=== PATIENT | male | born 1940 | race Caucasian/White ===

== ENCOUNTER 2018-04-12 16:42 | Inpatient (IN) | payer MEDICARE, OTHER ==
[2018-04-12 17:53] LABS: ADD MAN DIFF? NO
[2018-04-12 17:54] LABS: WHITE BLOOD COUNT 6.7 10^3/ul (4.8-10.8)
[2018-04-12 17:54] LABS: BASOPHILS % 0.1 % (0.0-2.0); HEMATOCRIT 44.5 % (42.0-52.0); HEMOGLOBIN 14.4 g/dl (14.0-18.0); LYMPHOCYTES # 0.7 10^3/ul (0.8-2.9); LYMPHOCYTES % 11.1 % (15.0-51.0); MEAN CORPUSCULAR HEMOGLOBIN 30.8 pg (29.0-33.0); MEAN CORPUSCULAR HGB CONC 32.4 g/dl (32.0-37.0); MEAN CORPUSCULAR VOLUME 95.1 fl (82.0-101.0); MEAN PLATELET VOLUME 9.8 fl (7.4-10.4); MONOCYTE # 0.8 10^3/ul (0.3-0.9); MONOCYTES % 12.1 % (0.0-11.0); NEUTROPHILS % 75.5 % (39.0-77.0); PLATELET COUNT 321 10^3/UL (140-415); RED BLOOD COUNT 4.68 10^6/ul (4.70-6.10); RED CELL DISTRIBUTION WIDTH 15.2 % (11.5-14.5)
[2018-04-12 18:00] LABS: ALANINE AMINOTRANSFERASE 13 IU/L (13-69); ALBUMIN 3.3 g/dl (3.3-4.9); ALBUMIN/GLOBULIN RATIO 0.91; ALKALINE PHOSPHATASE 143 IU/L (42-121); ANION GAP 16 (5-13); ASPARTATE AMINO TRANSFERASE 21 IU/L (15-46); BILIRUBIN,INDIRECT 0.1 mg/dl (0-1.1); BILIRUBIN,TOTAL 0.1 mg/dl (0.2-1.3); BLOOD UREA NITROGEN 62 mg/dl (7-20); CALCIUM 8.7 mg/dl (8.4-10.2); CARBON DIOXIDE 20 mmol/L (21-31); CHLORIDE 102 mmol/L (97-110); CREATININE 1.85 mg/dl (0.61-1.24); GLUCOSE 158 mg/dl (70-220); LIPASE 80 U/L (23-300); POTASSIUM 5.3 mmol/L (3.5-5.1); SODIUM 138 mmol/L (135-144); TOTAL PROTEIN 6.9 g/dl (6.1-8.1)
[2018-04-12] MEDS: ALBUTEROL 0.5% (NEB) 2.5 MG/0.5 ML AMP INH (18:04)
[2018-04-12] MEDS: IPRATROPIUM (NEB) 0.5 MG/2.5 ML AMP INH (18:04)
[2018-04-12 18:11] LABS: TROPONIN-I 0.025 ng/ml (0.000-0.120)
[2018-04-12] MEDS ORDERED: ONDANSETRON 4 MG INJ IV (20:00)
[2018-04-12] MEDS ORDERED: NACL 0.9% 3 ML SYG IV (20:00)
[2018-04-12 20:35] LABS: B-TYPE NATRIURETIC PEPTIDE 7570 PG/ML (0-450)
[2018-04-12] MEDS ORDERED: DEXTROSE 50% 50 ML SYRINGE IV ×2 (21:00)
[2018-04-12] MEDS ORDERED: GLUCAGON 1 MG INJ IM (21:00)
[2018-04-12] MEDS ORDERED: GLUCOSE GEL 15 GRAM TUBE PO ×2 (21:00)
[2018-04-12] MEDS: ATORVASTATIN 40 MG TAB PO (21:57)
[2018-04-12] MEDS: FUROSEMIDE 40 MG INJ IV (21:57)
[2018-04-12] MEDS: HEPARIN 5,000 UNIT/1 ML VIAL SC (22:37)
[2018-04-12] MEDS: INSULIN GLARGINE [LANTus] (100 UNITS/ML) SYG SC (22:38)
[2018-04-12] MEDS: INSULIN ASPART [NOVOLOG] 3 ML PEN SC (22:38)
[2018-04-13] MEDS: DILTIAZEM 25 MG INJ IV (00:08)
[2018-04-13] MEDS ORDERED: DILTIAZEM 25 MG INJ (00:09)
[2018-04-13 01:23] LABS: ANION GAP 18 (5-13); BLOOD UREA NITROGEN 63 mg/dl (7-20); CALCIUM 8.7 mg/dl (8.4-10.2); CARBON DIOXIDE 21 mmol/L (21-31); CHLORIDE 98 mmol/L (97-110); GLUCOSE 146 mg/dl (70-220); SODIUM 137 mmol/L (135-144)
[2018-04-13 01:53] LABS: MAGNESIUM 2.4 mg/dl (1.7-2.5)
[2018-04-13] MEDS: ACCU-CHEK XX (01:54)
[2018-04-13] MEDS: MAGNESIUM SULFATE 1 GM/D5W 100 ML IVPB (01:55)
[2018-04-13] MEDS: ALBUMIN HUMAN 25% 100 ML IV ×2 (03:18→04:35)
[2018-04-13] MEDS: INSULIN ASPART [NOVOLOG] 3 ML PEN SC ×9 (03:33→20:21)
[2018-04-13] MEDS: HEPARIN 5,000 UNIT/1 ML VIAL SC ×3 (06:53→22:30)
[2018-04-13 07:05] LABS: ADD MAN DIFF? NO
[2018-04-13 07:10] LABS: WHITE BLOOD COUNT 5.5 10^3/ul (4.8-10.8)
[2018-04-13 07:10] LABS: BASOPHILS % 0.2 % (0.0-2.0); EOSINOPHILS % 0.2 % (0.0-7.0); HEMATOCRIT 34.3 % (42.0-52.0); HEMOGLOBIN 11.1 g/dl (14.0-18.0); LYMPHOCYTES # 0.9 10^3/ul (0.8-2.9); LYMPHOCYTES % 15.5 % (15.0-51.0); MEAN CORPUSCULAR HEMOGLOBIN 30.4 pg (29.0-33.0); MEAN CORPUSCULAR HGB CONC 32.4 g/dl (32.0-37.0); MEAN PLATELET VOLUME 9.4 fl (7.4-10.4); MONOCYTE # 0.6 10^3/ul (0.3-0.9); MONOCYTES % 11.6 % (0.0-11.0); NEUTROPHIL # 3.9 10^3/ul (1.6-7.5); NEUTROPHILS % 71.4 % (39.0-77.0); PLATELET COUNT 246 10^3/UL (140-415); RED BLOOD COUNT 3.65 10^6/ul (4.70-6.10); RED CELL DISTRIBUTION WIDTH 15.1 % (11.5-14.5)
[2018-04-13 07:44] LABS: ALANINE AMINOTRANSFERASE 9 IU/L (13-69); ALBUMIN 3.5 g/dl (3.3-4.9); ALBUMIN/GLOBULIN RATIO 1.34; ALKALINE PHOSPHATASE 95 IU/L (42-121); ANION GAP 18 (5-13); ASPARTATE AMINO TRANSFERASE 19 IU/L (15-46); BLOOD UREA NITROGEN 63 mg/dl (7-20); CALCIUM 8.6 mg/dl (8.4-10.2); CARBON DIOXIDE 20 mmol/L (21-31); CHLORIDE 100 mmol/L (97-110); CREATININE 1.72 mg/dl (0.61-1.24); GLUCOSE 132 mg/dl (70-220); MAGNESIUM 2.6 mg/dl (1.7-2.5); POTASSIUM 4.6 mmol/L (3.5-5.1); SODIUM 138 mmol/L (135-144); TOTAL PROTEIN 6.1 g/dl (6.1-8.1)
[2018-04-13 07:48] LABS: HEMOGLOBIN A1C 7.8 % (0-5.9)
[2018-04-13 07:57] LABS: FREE T4 (FREE THYROXINE) 1.09 ng/dl (0.78-2.44)
[2018-04-13 07:58] LABS: FREE T3 2.14 pg/ml (2.77-5.27)
[2018-04-13] MEDS: ASPIRIN 81 MG TAB PO (08:44)
[2018-04-13] MEDS ORDERED: METOPROLOL 5 MG INJ IV (09:30)
[2018-04-13] MEDS: METOPROLOL 25 MG TAB PO ×2 (10:00→20:21)
[2018-04-13 14:13] LABS: INR 1.37; PROTIME 17.1 Sec (11.9-14.9); PT RATIO 1.3
[2018-04-13] MEDS: ATORVASTATIN 40 MG TAB PO (20:20)
[2018-04-13] MEDS: INSULIN GLARGINE [LANTus] (100 UNITS/ML) SYG SC (20:46)
[2018-04-14] MEDS: INSULIN ASPART [NOVOLOG] 3 ML PEN SC ×8 (01:00→22:21)
[2018-04-14] MEDS: ACCU-CHEK XX (02:25)
[2018-04-14] MEDS: GLUCOSE GEL 15 GRAM TUBE BUCCAL (02:46)
[2018-04-14] MEDS: HEPARIN 5,000 UNIT/1 ML VIAL SC ×3 (05:55→22:20)
[2018-04-14 06:36] LABS: LACTATE DEHYDROGENASE 520 IU/L (313-618)
[2018-04-14 06:36] LABS: TOTAL PROTEIN 5.3 g/dl (6.1-8.1)
[2018-04-14] MEDS: METOPROLOL 25 MG TAB PO ×2 (08:07→22:04)
[2018-04-14] MEDS: ASPIRIN 81 MG TAB PO (08:07)
[2018-04-14] MEDS: morphine 2 MG INJ IV (12:26)
[2018-04-14 20:12] LABS: FLD MN% 93.8 %; FLD PMN% 6.2 %; FLD RBC 37000 /uL; FLD WBC 404 /cmm
[2018-04-14 20:21] LABS: FLUID LD 414 U/L; FLUID TYPE THORACENTESIS FLUID
[2018-04-14 20:22] LABS: FLUID TOTAL PROTEIN 3.7 g/dl
[2018-04-14 20:39] LABS: FLD TYPE THORACENTHESIS
[2018-04-14 20:40] LABS: FLD CLARITY SLIGHTLY CLOUDY; FLD COLOR AMBER
[2018-04-14] MEDS: ALBUTEROL/IPRATROPIUM (NEB) 3 ML AMP HHN (21:39)
[2018-04-14] MEDS: ATORVASTATIN 40 MG TAB PO (22:02)
[2018-04-14] MEDS: INSULIN GLARGINE [LANTus] (100 UNITS/ML) SYG SC (22:21)
[2018-04-15] MEDS: ACCU-CHEK XX (02:45)
[2018-04-15] MEDS: HEPARIN 5,000 UNIT/1 ML VIAL SC ×3 (05:18→22:33)
[2018-04-15 07:23] LABS: ALANINE AMINOTRANSFERASE 31 IU/L (13-69); ALBUMIN 2.8 g/dl (3.3-4.9); ALBUMIN/GLOBULIN RATIO 1.07; ALKALINE PHOSPHATASE 102 IU/L (42-121); ANION GAP 9 (5-13); ASPARTATE AMINO TRANSFERASE 29 IU/L (15-46); BILIRUBIN,INDIRECT 0.1 mg/dl (0-1.1); BILIRUBIN,TOTAL 0.1 mg/dl (0.2-1.3); BLOOD UREA NITROGEN 47 mg/dl (7-20); CALCIUM 8.3 mg/dl (8.4-10.2); CARBON DIOXIDE 30 mmol/L (21-31); CHLORIDE 100 mmol/L (97-110); CREATININE 1.29 mg/dl (0.61-1.24); GLUCOSE 88 mg/dl (70-220); LACTATE DEHYDROGENASE 462 IU/L (313-618); POTASSIUM 4.7 mmol/L (3.5-5.1); SODIUM 139 mmol/L (135-144); TOTAL PROTEIN 5.4 g/dl (6.1-8.1)
[2018-04-15] MEDS: INSULIN ASPART [NOVOLOG] 3 ML PEN SC ×5 (07:25→22:33)
[2018-04-15] MEDS: METOPROLOL 25 MG TAB PO ×2 (09:02→21:00)
[2018-04-15] MEDS: ASPIRIN 81 MG TAB PO (09:02)
[2018-04-15] MEDS ORDERED: INSULIN ASPART [NOVOLOG] 3 ML PEN SC (17:55)
[2018-04-15] MEDS: INSULIN GLARGINE [LANTus] (100 UNITS/ML) SYG SC (21:00)
[2018-04-15] MEDS: ATORVASTATIN 40 MG TAB PO (22:13)
[2018-04-16] MEDS ORDERED: PROPOFOL 100 ML (00:10)
[2018-04-16 01:14] LABS: ADD MAN DIFF? NO
[2018-04-16] MEDS: PROPOFOL 100 ML IV ×2 (01:25→15:51)
[2018-04-16 01:36] LABS: ALANINE AMINOTRANSFERASE 36 IU/L (13-69); ALBUMIN 2.8 g/dl (3.3-4.9); ALBUMIN/GLOBULIN RATIO 1.07; ALKALINE PHOSPHATASE 111 IU/L (42-121); ANION GAP 13 (5-13); ASPARTATE AMINO TRANSFERASE 58 IU/L (15-46); BLOOD UREA NITROGEN 41 mg/dl (7-20); CALCIUM 8.1 mg/dl (8.4-10.2); CARBON DIOXIDE 22 mmol/L (21-31); CHLORIDE 99 mmol/L (97-110); CREATINE KINASE 130 IU/L (23-200); CREATININE 1.37 mg/dl (0.61-1.24); GLUCOSE 228 mg/dl (70-220); POTASSIUM 4.7 mmol/L (3.5-5.1); SODIUM 134 mmol/L (135-144); TOTAL PROTEIN 5.4 g/dl (6.1-8.1)
[2018-04-16 01:39] LABS: AADO2 Arterial 291.8 mmHg (7.0-24.0); Allen Test ACCEPTAB; Arterial Base Excess -2.9 mmol/L (-3.0-3); Arterial Blood Gas Oxygen Sat 99.5 mmHG (95.0-100.0); Arterial COHb 0.3 % (0.0-3.0); Arterial Fraction of Oxyhgb 98.9 % (93.0-99.0); Arterial HCO3 23.6 mmol/L (22.0-26.0); Arterial MetHb 0.3 % (0.0-1.5); Arterial pCO2 48.2 mmhg (35-45); MODE VENT - AC; Site Right Radial
[2018-04-16 01:41] LABS: WHITE BLOOD COUNT 6.9 10^3/ul (4.8-10.8)
[2018-04-16 01:41] LABS: ABNORMAL IP MESSAGE 1; BASOPHILS % 0.1 % (0.0-2.0); EOSINOPHILS % 0.3 % (0.0-7.0); HEMATOCRIT 31.7 % (42.0-52.0); HEMOGLOBIN 11.5 g/dl (14.0-18.0); LYMPHOCYTES # 0.4 10^3/ul (0.8-2.9); LYMPHOCYTES % 6.2 % (15.0-51.0); MEAN CORPUSCULAR HEMOGLOBIN 36.1 pg (29.0-33.0); MEAN CORPUSCULAR HGB CONC 36.3 g/dl (32.0-37.0); MEAN CORPUSCULAR VOLUME 99.4 fl (82.0-101.0); MONOCYTE # 0.6 10^3/ul (0.3-0.9); MONOCYTES % 8.6 % (0.0-11.0); NEUTROPHIL # 5.7 10^3/ul (1.6-7.5); NEUTROPHILS % 82.6 % (39.0-77.0); PLATELET COUNT 141 10^3/UL (140-415); POSITIVE DIFF @See below; RED BLOOD COUNT 3.19 10^6/ul (4.70-6.10); RED CELL DISTRIBUTION WIDTH 14.6 % (11.5-14.5)
[2018-04-16 01:47] LABS: CK INDEX 4.3; TROPONIN-I 0.054 ng/ml (0.000-0.120)
[2018-04-16] MEDS: ACCU-CHEK XX (02:00)
[2018-04-16] MEDS: SOD CHLORIDE 0.9% 500 ML IV (02:59)
[2018-04-16] MEDS: MIDAZOLAM (DRIP) 50 mg/50 mL 50 ML IV (04:09)
[2018-04-16 05:51] LABS: CREATINE KINASE 105 IU/L (23-200)
[2018-04-16 05:58] LABS: LACTIC ACID 3.7 mmol/L (0.5-2.0)
[2018-04-16] MEDS ORDERED: LIDOCAINE 1% (MPF) 5 ML VIAL SC (06:00)
[2018-04-16 06:03] LABS: CK INDEX 5.5
[2018-04-16 06:05] LABS: CK-MB 5.76 ng/ml (0.0-2.4)
[2018-04-16 06:08] LABS: TROPONIN-I 0.187 ng/ml (0.000-0.120)
[2018-04-16] MEDS: SOD CHLORIDE 0.9% 1,000 ML IV (06:50)
[2018-04-16] MEDS: HEPARIN 5,000 UNIT/1 ML VIAL SC ×2 (06:55→13:35)
[2018-04-16] MEDS: INSULIN ASPART [NOVOLOG] 3 ML PEN SC ×4 (06:55→21:03)
[2018-04-16] MEDS ORDERED: EPINEPHrine 0.1 MG/ML SYG (07:00)
[2018-04-16] MEDS: ASPIRIN 81 MG TAB PO (08:26)
[2018-04-16] MEDS: METOPROLOL 25 MG TAB PO ×2 (08:28→21:49)
[2018-04-16] MEDS: LIDOCAINE 1% (MPF) 5 ML VIAL SC (11:30)
[2018-04-16 12:41] LABS: CREATINE KINASE 137 IU/L (23-200)
[2018-04-16 12:42] LABS: LACTIC ACID 2.6 mmol/L (0.5-2.0)
[2018-04-16 12:59] LABS: CK INDEX 4.9
[2018-04-16 13:04] LABS: CK-MB 6.76 ng/ml (0.0-2.4)
[2018-04-16 13:15] LABS: AADO2 Arterial 118.1 mmHg (7.0-24.0); Allen Test ACCEPTAB; Arterial Base Excess -1.6 mmol/L (-3.0-3); Arterial Blood Gas Oxygen Sat 95.7 mmHG (95.0-100.0); Arterial COHb 0.1 % (0.0-3.0); Arterial Fraction of Oxyhgb 95.3 % (93.0-99.0); Arterial HCO3 23.7 mmol/L (22.0-26.0); Arterial MetHb 0.3 % (0.0-1.5); Arterial pCO2 42.4 mmhg (35-45); Blood Gas PS 10; MODE VENT - CPAP; Site Right Radial
[2018-04-16] MEDS: DEXTROSE 5%-0.45% NACL 1,000 ML IV (14:47)
[2018-04-16] MEDS: hydrALAzine 20 MG INJ IV (14:53)
[2018-04-16] MEDS ORDERED: morphine 2 MG INJ IV (19:00)
[2018-04-16] MEDS: INSULIN GLARGINE [LANTus] (100 UNITS/ML) SYG SC (21:02)
[2018-04-16] MEDS: ATORVASTATIN 40 MG TAB PO (21:49)
[2018-04-17] MEDS: PROPOFOL 100 ML IV ×2 (00:50→08:18)
[2018-04-17] MEDS: HEPARIN 5,000 UNIT/1 ML VIAL SC ×4 (01:21→21:13)
[2018-04-17] MEDS: ACCU-CHEK XX (02:00)
[2018-04-17] MEDS: DEXTROSE 5%-0.45% NACL 1,000 ML IV ×2 (05:03→17:02)
[2018-04-17 05:10] LABS: ADD MAN DIFF? NO
[2018-04-17 05:18] LABS: BASOPHILS % 0.1 % (0.0-2.0); EOSINOPHILS % 0.1 % (0.0-7.0); HEMOGLOBIN 10.6 g/dl (14.0-18.0); LYMPHOCYTES # 0.7 10^3/ul (0.8-2.9); LYMPHOCYTES % 9.2 % (15.0-51.0); MEAN CORPUSCULAR HEMOGLOBIN 30.9 pg (29.0-33.0); MEAN CORPUSCULAR HGB CONC 33.1 g/dl (32.0-37.0); MEAN CORPUSCULAR VOLUME 93.3 fl (82.0-101.0); MEAN PLATELET VOLUME 9.5 fl (7.4-10.4); MONOCYTE # 0.9 10^3/ul (0.3-0.9); NEUTROPHIL # 5.5 10^3/ul (1.6-7.5); NEUTROPHILS % 76.9 % (39.0-77.0); PLATELET COUNT 145 10^3/UL (140-415); RED BLOOD COUNT 3.43 10^6/ul (4.70-6.10); RED CELL DISTRIBUTION WIDTH 15.3 % (11.5-14.5)
[2018-04-17 05:18] LABS: WHITE BLOOD COUNT 7.2 10^3/ul (4.8-10.8)
[2018-04-17 05:42] LABS: ANION GAP 3 (5-13); BLOOD UREA NITROGEN 35 mg/dl (7-20); CALCIUM 7.8 mg/dl (8.4-10.2); CARBON DIOXIDE 26 mmol/L (21-31); CHLORIDE 104 mmol/L (97-110); CREATININE 1.23 mg/dl (0.61-1.24); GLUCOSE 132 mg/dl (70-220); MAGNESIUM 2.1 mg/dl (1.7-2.5); PHOSPHORUS 2.7 mg/dl (2.5-4.9); POTASSIUM 4.3 mmol/L (3.5-5.1); SODIUM 133 mmol/L (135-144)
[2018-04-17] MEDS: INSULIN ASPART [NOVOLOG] 3 ML PEN SC ×5 (07:00→20:36)
[2018-04-17] MEDS: ASPIRIN 81 MG TAB PO (09:03)
[2018-04-17] MEDS: METOPROLOL 25 MG TAB PO ×2 (09:40→20:03)
[2018-04-17 12:17] LABS: AADO2 Arterial 73.6 mmHg (7.0-24.0); Allen Test ACCEPTAB; Arterial Base Excess -0.3 mmol/L (-3.0-3); Arterial Blood Gas Oxygen Sat 97.6 mmHG (95.0-100.0); Arterial COHb 0.1 % (0.0-3.0); Arterial Fraction of Oxyhgb 97.2 % (93.0-99.0); Arterial MetHb 0.3 % (0.0-1.5); Arterial pCO2 33.8 mmhg (35-45); Blood Gas PS 10; MODE VENT - CPAP; Site Right Radial
[2018-04-17] MEDS: LACTATED RINGER'S 500 ML IV (12:38)
[2018-04-17] MEDS: IODIXANOL LOCM 100 ML BTL (16:01)
[2018-04-17] MEDS: SOD CHLORIDE 0.9% 100 ML (16:01)
[2018-04-17] MEDS: HEPARIN (10 UNITS/ML) 5ML SYG IV (17:03)
[2018-04-17] MEDS: ATORVASTATIN 40 MG TAB PO (20:03)
[2018-04-17] MEDS: INSULIN GLARGINE [LANTus] (100 UNITS/ML) SYG SC (21:14)
[2018-04-18] MEDS: PROPOFOL 100 ML IV (00:30)
[2018-04-18] MEDS: INSULIN ASPART [NOVOLOG] 3 ML PEN SC ×6 (00:39→21:25)
[2018-04-18] MEDS: ACCU-CHEK XX (01:58)
[2018-04-18 04:57] LABS: ADD MAN DIFF? NO
[2018-04-18 05:01] LABS: WHITE BLOOD COUNT 8.3 10^3/ul (4.8-10.8)
[2018-04-18 05:01] LABS: BASOPHILS % 0.1 % (0.0-2.0); EOSINOPHILS % 0.2 % (0.0-7.0); HEMATOCRIT 33.1 % (42.0-52.0); HEMOGLOBIN 10.8 g/dl (14.0-18.0); LYMPHOCYTES # 0.6 10^3/ul (0.8-2.9); LYMPHOCYTES % 7.2 % (15.0-51.0); MEAN CORPUSCULAR HEMOGLOBIN 30.6 pg (29.0-33.0); MEAN CORPUSCULAR HGB CONC 32.6 g/dl (32.0-37.0); MEAN CORPUSCULAR VOLUME 93.8 fl (82.0-101.0); MEAN PLATELET VOLUME 9.6 fl (7.4-10.4); MONOCYTE # 1.1 10^3/ul (0.3-0.9); MONOCYTES % 13.6 % (0.0-11.0); NEUTROPHIL # 6.4 10^3/ul (1.6-7.5); NEUTROPHILS % 77.9 % (39.0-77.0); PLATELET COUNT 148 10^3/UL (140-415); RED BLOOD COUNT 3.53 10^6/ul (4.70-6.10); RED CELL DISTRIBUTION WIDTH 15.1 % (11.5-14.5)
[2018-04-18 05:28] LABS: ANION GAP 4 (5-13); BLOOD UREA NITROGEN 23 mg/dl (7-20); CALCIUM 7.7 mg/dl (8.4-10.2); CARBON DIOXIDE 26 mmol/L (21-31); CHLORIDE 105 mmol/L (97-110); CREATININE 0.96 mg/dl (0.61-1.24); GLUCOSE 117 mg/dl (70-220); POTASSIUM 4.5 mmol/L (3.5-5.1); SODIUM 135 mmol/L (135-144)
[2018-04-18 05:37] LABS: LACTIC ACID 2.1 mmol/L (0.5-2.0)
[2018-04-18 05:58] LABS: AADO2 Arterial 38.9 mmHg (7.0-24.0); Arterial Base Excess 0.5 mmol/L (-3.0-3); Arterial Blood Gas Oxygen Sat 94.3 mmHG (95.0-100.0); Arterial COHb 0.6 % (0.0-3.0); Arterial Fraction of Oxyhgb 93.4 % (93.0-99.0); Arterial HCO3 23.6 mmol/L (22.0-26.0); Arterial MetHb 0.4 % (0.0-1.5); MODE ROOM AIR; Site Right Brachial
[2018-04-18] MEDS: DEXTROSE 5%-0.45% NACL 1,000 ML IV ×2 (06:03→20:13)
[2018-04-18] MEDS: HEPARIN 5,000 UNIT/1 ML VIAL SC ×3 (06:07→21:24)
[2018-04-18] MEDS: METOPROLOL 25 MG TAB PO ×2 (09:00→21:28)
[2018-04-18] MEDS: ASPIRIN 81 MG TAB PO (09:00)
[2018-04-18] MEDS: INSULIN GLARGINE [LANTus] (100 UNITS/ML) SYG SC (21:26)
[2018-04-18] MEDS: ATORVASTATIN 40 MG TAB PO (21:28)
[2018-04-19] MEDS: INSULIN ASPART [NOVOLOG] 3 ML PEN SC ×6 (01:00→21:07)
[2018-04-19] MEDS: ACCU-CHEK XX (02:00)
[2018-04-19] MEDS: HEPARIN 5,000 UNIT/1 ML VIAL SC ×3 (05:38→21:08)
[2018-04-19 06:38] LABS: ADD MAN DIFF? NO
[2018-04-19 06:41] LABS: BASOPHILS % 0.1 % (0.0-2.0); EOSINOPHILS % 0.4 % (0.0-7.0); HEMOGLOBIN 10.1 g/dl (14.0-18.0); LYMPHOCYTES # 0.7 10^3/ul (0.8-2.9); LYMPHOCYTES % 9.9 % (15.0-51.0); MEAN CORPUSCULAR HEMOGLOBIN 30.9 pg (29.0-33.0); MEAN CORPUSCULAR HGB CONC 33.7 g/dl (32.0-37.0); MEAN CORPUSCULAR VOLUME 91.7 fl (82.0-101.0); MEAN PLATELET VOLUME 9.9 fl (7.4-10.4); MONOCYTE # 1.1 10^3/ul (0.3-0.9); MONOCYTES % 15.7 % (0.0-11.0); NEUTROPHIL # 5.3 10^3/ul (1.6-7.5); NEUTROPHILS % 72.9 % (39.0-77.0); PLATELET COUNT 142 10^3/UL (140-415); RED BLOOD COUNT 3.27 10^6/ul (4.70-6.10); RED CELL DISTRIBUTION WIDTH 15.3 % (11.5-14.5)
[2018-04-19 06:41] LABS: WHITE BLOOD COUNT 7.2 10^3/ul (4.8-10.8)
[2018-04-19 07:11] LABS: ANION GAP 7 (5-13); BLOOD UREA NITROGEN 18 mg/dl (7-20); CALCIUM 7.6 mg/dl (8.4-10.2); CARBON DIOXIDE 25 mmol/L (21-31); CHLORIDE 103 mmol/L (97-110); CREATININE 0.91 mg/dl (0.61-1.24); GLUCOSE 109 mg/dl (70-220); POTASSIUM 4.1 mmol/L (3.5-5.1); SODIUM 135 mmol/L (135-144)
[2018-04-19] MEDS: DEXTROSE 5%-0.45% NACL 1,000 ML IV ×2 (08:33→17:34)
[2018-04-19] MEDS: METOPROLOL 25 MG TAB PO ×2 (08:33→20:42)
[2018-04-19] MEDS: ASPIRIN 81 MG TAB PO (08:33)
[2018-04-19] MEDS: BISACODYL (EC) 5 MG TAB PO (17:32)
[2018-04-19] MEDS: DOCUSATE SODIUM 100 MG CAP PO (17:32)
[2018-04-19] MEDS: ATORVASTATIN 40 MG TAB PO (20:42)
[2018-04-19] MEDS: INSULIN GLARGINE [LANTus] (100 UNITS/ML) SYG SC (21:07)
[2018-04-20] MEDS: INSULIN ASPART [NOVOLOG] 3 ML PEN SC ×6 (01:00→21:00)
[2018-04-20] MEDS: ACCU-CHEK XX (02:00)
[2018-04-20] MEDS: HEPARIN 5,000 UNIT/1 ML VIAL SC ×3 (06:18→21:03)
[2018-04-20] MEDS: DOCUSATE SODIUM 100 MG CAP PO (08:44)
[2018-04-20] MEDS: ASPIRIN 81 MG TAB PO (08:44)
[2018-04-20] MEDS: DEXTROSE 5%-0.45% NACL 1,000 ML IV (08:44)
[2018-04-20] MEDS: METOPROLOL 25 MG TAB PO ×2 (08:45→21:00)
[2018-04-20] MEDS: ATORVASTATIN 40 MG TAB PO (21:00)
[2018-04-20] MEDS: INSULIN GLARGINE [LANTus] (100 UNITS/ML) SYG SC (21:03)
[2018-04-21] MEDS: INSULIN ASPART [NOVOLOG] 3 ML PEN SC ×3 (01:00→08:13)
[2018-04-21] MEDS: ACCU-CHEK XX (02:00)
[2018-04-21 05:06] LABS: ADD MAN DIFF? NO
[2018-04-21 05:08] LABS: ABNORMAL IP MESSAGE 1; BASOPHILS % 0.1 % (0.0-2.0); EOSINOPHILS % 0.2 % (0.0-7.0); HEMATOCRIT 31.7 % (42.0-52.0); HEMOGLOBIN 10.7 g/dl (14.0-18.0); LYMPHOCYTES # 0.7 10^3/ul (0.8-2.9); LYMPHOCYTES % 8.6 % (15.0-51.0); MEAN CORPUSCULAR HEMOGLOBIN 30.8 pg (29.0-33.0); MEAN CORPUSCULAR HGB CONC 33.8 g/dl (32.0-37.0); MEAN CORPUSCULAR VOLUME 91.4 fl (82.0-101.0); MEAN PLATELET VOLUME 9.2 fl (7.4-10.4); MONOCYTE # 1.5 10^3/ul (0.3-0.9); MONOCYTES % 18.4 % (0.0-11.0); NEUTROPHIL # 5.9 10^3/ul (1.6-7.5); NEUTROPHILS % 71.4 % (39.0-77.0); PLATELET COUNT 144 10^3/UL (140-415); POSITIVE DIFF @See below; RED BLOOD COUNT 3.47 10^6/ul (4.70-6.10); RED CELL DISTRIBUTION WIDTH 14.6 % (11.5-14.5)
[2018-04-21 05:08] LABS: WHITE BLOOD COUNT 8.3 10^3/ul (4.8-10.8)
[2018-04-21] MEDS: HEPARIN 5,000 UNIT/1 ML VIAL SC ×3 (05:45→22:28)
[2018-04-21 05:51] LABS: ANION GAP 9 (5-13); BLOOD UREA NITROGEN 14 mg/dl (7-20); CALCIUM 7.5 mg/dl (8.4-10.2); CARBON DIOXIDE 24 mmol/L (21-31); CHLORIDE 98 mmol/L (97-110); CREATININE 0.89 mg/dl (0.61-1.24); GLUCOSE 121 mg/dl (70-220); MAGNESIUM 1.5 mg/dl (1.7-2.5); PHOSPHORUS 3.2 mg/dl (2.5-4.9); POTASSIUM 3.9 mmol/L (3.5-5.1); SODIUM 131 mmol/L (135-144)
[2018-04-21] MEDS: DEXTROSE 5%-0.45% NACL 1,000 ML IV (08:00)
[2018-04-21] MEDS: ASPIRIN 81 MG TAB PO (08:13)
[2018-04-21] MEDS: METOPROLOL 25 MG TAB PO ×2 (08:13→20:32)
[2018-04-21] MEDS ORDERED: INSULIN ASPART [NOVOLOG] 3 ML PEN SC (11:10)
[2018-04-21] MEDS: Insulin NOVOLOG SS MILD Algorithm (SS with meals and bedtime) SC ×3 (12:52→20:33)
[2018-04-21] MEDS: NICOTINE (21 MG/24 HR) PATCH TRANSDERM (13:26)
[2018-04-21] MEDS ORDERED: morphine LIQ (10 MG/5 ML) CUP PO (15:00)
[2018-04-21] MEDS: ATORVASTATIN 40 MG TAB PO (20:31)
[2018-04-21] MEDS: INSULIN GLARGINE [LANTus] (100 UNITS/ML) SYG SC (20:33)
[2018-04-22] MEDS: ACCU-CHEK XX (02:00)
[2018-04-22] MEDS: ACETAMINOPHEN 325 MG TAB PO (02:30)
[2018-04-22] MEDS: HEPARIN 5,000 UNIT/1 ML VIAL SC ×3 (06:37→20:59)
[2018-04-22] MEDS: METOPROLOL 25 MG TAB PO ×2 (08:21→21:00)
[2018-04-22] MEDS: ASPIRIN 81 MG TAB PO (08:21)
[2018-04-22] MEDS: NICOTINE (21 MG/24 HR) PATCH TRANSDERM (08:29)
[2018-04-22] MEDS: HYDROCODONE/APAP (5/325) TAB PO (08:33)
[2018-04-22] MEDS: Insulin NOVOLOG SS MILD Algorithm (SS with meals and bedtime) SC ×4 (08:37→21:00)
[2018-04-22] MEDS: ATORVASTATIN 40 MG TAB PO (20:59)
[2018-04-22] MEDS: INSULIN GLARGINE [LANTus] (100 UNITS/ML) SYG SC (20:59)
[2018-04-23] MEDS: ACCU-CHEK XX (01:48)
[2018-04-23] MEDS: HEPARIN 5,000 UNIT/1 ML VIAL SC ×2 (05:14→13:52)
[2018-04-23] MEDS: Insulin NOVOLOG SS MILD Algorithm (SS with meals and bedtime) SC ×2 (07:20→11:10)
[2018-04-23] MEDS: ASPIRIN 81 MG TAB PO (08:25)
[2018-04-23] MEDS: METOPROLOL 25 MG TAB PO (08:32)
[2018-04-23] MEDS: NICOTINE (21 MG/24 HR) PATCH TRANSDERM (08:43)
== END 2018-04-23 15:15 | DRG 208 ==
LOC: ICU 04-16 00:03 → MS1 04-20 11:53 → E/R 16:42 → TEL 04-18 23:33
PROC: 0W9930Z Drainage of Right Pleural Cavity with Drainage Device, Percutaneous Approach (ICD-10-PCS; 2018-04-14)
PROC: 5A1945Z Respiratory Ventilation, 24-96 Consecutive Hours (ICD-10-PCS; principal; 2018-04-16)
PROC: 0BH17EZ Insertion of Endotracheal Airway into Trachea, Via Natural or Artificial Opening (ICD-10-PCS; 2018-04-16)
PROC: 0W9900Z Drainage of Right Pleural Cavity with Drainage Device, Open Approach (ICD-10-PCS; 2018-04-16)
PROC: 02HV33Z Insertion of Infusion Device into Superior Vena Cava, Percutaneous Approach (ICD-10-PCS; 2018-04-17)
DX: C34.01 Malignant neoplasm of right main bronchus (principal); I46.9 Cardiac arrest, cause unspecified; J96.01 Acute respiratory failure with hypoxia; N17.9 Acute kidney failure, unspecified; J91.0 Malignant pleural effusion; E46 Unspecified protein-calorie malnutrition; J44.1 Chronic obstructive pulmonary disease with (acute) exacerbation; I48.92 Unspecified atrial flutter; J98.11 Atelectasis; I48.91 Unspecified atrial fibrillation; Z68.26 Body mass index [BMI] 26.0-26.9, adult; Z72.0 Tobacco use; E11.9 Type 2 diabetes mellitus without complications; Z86.73 Personal history of transient ischemic attack (TIA), and cerebral infarction without residual deficits; E78.5 Hyperlipidemia, unspecified; I12.9 Hypertensive chronic kidney disease with stage 1 through stage 4 chronic kidney disease, or unspecified chronic kidney disease; N18.9 Chronic kidney disease, unspecified; I27.20 Pulmonary hypertension, unspecified; F03.90 Unspecified dementia, unspecified severity, without behavioral disturbance, psychotic disturbance, mood disturbance, and anxiety; R59.1 Generalized enlarged lymph nodes; Z66 Do not resuscitate
CPT/HCPCS: 31500; 36569; 36600; 70552; 71045; 71250; 71260; 74177; 76937; 76942; 80048; 80053; 82550; 82553; 82803; 82962; 83036; 83605; 83615; 83690; 83735; 83880; 84100; 84155; 84157; 84439; 84443; 84481; 84484; 85025; 85610; 87070; 87081; 87102; 87116; 88104; 88305; 89051; 90686; 92526; 92610; 92950; 93005; 93306; 94002; 94003; 94644; 94664; 94770; 97110; 97161; 97164; 97530; 99285-25

== ENCOUNTER 2018-06-05 18:28 | Inpatient (IN) | payer MEDICARE, OTHER ==
[2018-06-05 18:47] LABS: ABNORMAL IP MESSAGE 1; HEMATOCRIT 22.1 % (42.0-52.0); MEAN CORPUSCULAR HGB CONC 29.9 g/dl (32.0-37.0); MEAN CORPUSCULAR VOLUME 93.6 fl (82.0-101.0); MEAN PLATELET VOLUME 8.9 fl (7.4-10.4); NUCLEATED RED BLOOD CELLS% 1.1 /100WBC (0.0-0.0); PLATELET COUNT 133 10^3/UL (140-415); POSITIVE DIFF @See below; RED BLOOD COUNT 2.36 10^6/ul (4.70-6.10); RED CELL DISTRIBUTION WIDTH 17.3 % (11.5-14.5)
[2018-06-05 18:47] LABS: WHITE BLOOD COUNT 8.4 10^3/ul (4.8-10.8)
[2018-06-05] MEDS: PANTOPRAZOLE 40 MG INJ IV (18:49)
[2018-06-05 18:53] LABS: ADD MAN DIFF? YES; HEMOGLOBIN 6.6 g/dl (14.0-18.0)
[2018-06-05] MEDS: SOD CHLORIDE 0.9% 0 ML IV (18:53)
[2018-06-05 19:06] LABS: ALANINE AMINOTRANSFERASE 24 IU/L (13-69); ALBUMIN 2.4 g/dl (3.3-4.9); ALKALINE PHOSPHATASE 465 IU/L (42-121); ANION GAP 8 (5-13); ASPARTATE AMINO TRANSFERASE 65 IU/L (15-46); BLOOD UREA NITROGEN 47 mg/dl (7-20); CALCIUM 8.1 mg/dl (8.4-10.2); CARBON DIOXIDE 24 mmol/L (21-31); CHLORIDE 101 mmol/L (97-110); CREATININE 0.86 mg/dl (0.61-1.24); GLUCOSE 251 mg/dl (70-220); POTASSIUM 5.2 mmol/L (3.5-5.1); SODIUM 133 mmol/L (135-144); TOTAL PROTEIN 5.4 g/dl (6.1-8.1)
[2018-06-05 19:10] LABS: INR 1.18; PARTIAL THROMBOPLASTIN TIME 33.4 Sec (23.0-35.0); PROTIME 15.1 Sec (11.9-14.9); PT RATIO 1.2
[2018-06-05 19:17] LABS: TROPONIN-I < 0.012 ng/ml (0.000-0.120)
[2018-06-05] MEDS ORDERED: ONDANSETRON 4 MG INJ IV ×2 (19:30)
[2018-06-05] MEDS ORDERED: ACETAMINOPHEN 325 MG TAB PO ×2 (19:30)
[2018-06-05] MEDS ORDERED: LORAZEPAM 2 MG INJ IV (19:30)
[2018-06-05] MEDS ORDERED: MAGNESIUM HYDROXIDE 30ML CUP PO (19:30)
[2018-06-05] MEDS ORDERED: NITROGLYCERIN (SL) 0.4 MG TAB SL (19:30)
[2018-06-05] MEDS ORDERED: DOCUSATE SODIUM 100 MG CAP PO (19:30)
[2018-06-05] MEDS ORDERED: NACL 0.9% 3 ML SYG IV (19:30)
[2018-06-05] MEDS ORDERED: HYDROCODONE/APAP (5/325) TAB PO (19:30)
[2018-06-05] MEDS ORDERED: ALBUTEROL/IPRATROPIUM (NEB) 3 ML AMP HHN (19:30)
[2018-06-05] MEDS ORDERED: hydrALAzine 20 MG INJ IV (19:30)
[2018-06-05] MEDS ORDERED: morphine 2 MG INJ IV (19:30)
[2018-06-05 19:55] LABS: ANISOCYTOSIS 1+ (0-0); BAND NEUTROPHILS #M 1.6 10^3/ul (0.0-0.6); BAND NEUTROPHILS % (M) 20 % (0-4); BURR CELLS 1+ (0-0); EOSINOPHILS % (M) 2 % (0-7); ERYTHROBLAST% (NRBC) (M) 1 % (0-0); HYPOCHROMASIA 2+ (0-0); LYMPHOCYTES #M 0.5 10^3/ul (0.8-2.9); LYMPHOCYTES % (M) 7 % (15-51); METAMYELOCYTES #M 0.2 10^3/ul (0.0-0.0); METAMYELOCYTES %M 3 % (0-0); MICROCYTOSIS 1+ (0-0); MONOCYTE #M 0.6 10^3/ul (0.3-0.9); MONOCYTES % (M) 8 % (0-11); MYELOCYTES #M 0.3 10^3/ul (0.0-0.0); MYELOCYTES % (M) 4 % (0-0); OVALOCYTES 1+ (0-0); POIKILOCYTOSIS 1+ (0-0); POLYCHROMASIA 1+ (0-0); PROMYELOCYTES % (M) 1 % (0-0); SCHISTOCYTES 1+ (0-0); SEG NEUT #M 4.8 10^3/ul (1.6-7.5); SEGMENTED NEUTROPHILS (M) % 55 % (39-77); SMUDGE%M 6 % (0-0); SPHEROCYTES 1+ (0-0); STOMATOCYTES 1+ (0-0)
[2018-06-05 20:08] LABS: FREE T4 (FREE THYROXINE) 1.01 ng/dl (0.78-2.44)
[2018-06-05 20:20] LABS: IMMEDIATE SPIN CROSSMATCH 1 2
[2018-06-05] MEDS: ATORVASTATIN 40 MG TAB PO (22:23)
[2018-06-05] MEDS ORDERED: GLUCOSE GEL 15 GRAM TUBE PO ×2 (22:30)
[2018-06-05] MEDS ORDERED: DEXTROSE 50% 50 ML SYRINGE IV ×2 (22:30)
[2018-06-05] MEDS ORDERED: GLUCAGON 1 MG INJ IM (22:30)
[2018-06-05] MEDS ORDERED: GLUCOSE GEL 15 GRAM TUBE BUCCAL (22:30)
[2018-06-05] MEDS: INSULIN GLARGINE [LANTus] (100 UNITS/ML) SYG SC (22:35)
[2018-06-06] MEDS: SODIUM POLYSTYRENE 15 GM KIT (POWDER + SORBITOL) PO (00:32)
[2018-06-06] MEDS: SOD CHLORIDE 0.45% 1,000 ML IV ×2 (00:33→08:45)
[2018-06-06] MEDS ORDERED: ACCU-CHEK XX (02:00)
[2018-06-06] MEDS ORDERED: PENDING SANTYL ORDER FOR WOUND CARE XX (04:30)
[2018-06-06 09:16] LABS: WHITE BLOOD COUNT 9.5 10^3/ul (4.8-10.8)
[2018-06-06 09:16] LABS: ABNORMAL IP MESSAGE 1; HEMATOCRIT 27.2 % (42.0-52.0); HEMOGLOBIN 8.6 g/dl (14.0-18.0); MEAN CORPUSCULAR HEMOGLOBIN 29.5 pg (29.0-33.0); MEAN CORPUSCULAR HGB CONC 31.6 g/dl (32.0-37.0); MEAN CORPUSCULAR VOLUME 93.2 fl (82.0-101.0); MEAN PLATELET VOLUME 9.5 fl (7.4-10.4); NUCLEATED RED BLOOD CELLS% 0.8 /100WBC (0.0-0.0); PLATELET COUNT 131 10^3/UL (140-415); POSITIVE DIFF @See below; RED BLOOD COUNT 2.92 10^6/ul (4.70-6.10); RED CELL DISTRIBUTION WIDTH 16.5 % (11.5-14.5)
[2018-06-06 09:17] LABS: ADD MAN DIFF? YES
[2018-06-06] MEDS: LISINOPRIL 10 MG TAB PO (09:26)
[2018-06-06 09:28] LABS: ANION GAP 10 (5-13); BLOOD UREA NITROGEN 38 mg/dl (7-20); CALCIUM 7.9 mg/dl (8.4-10.2); CARBON DIOXIDE 24 mmol/L (21-31); CHLORIDE 102 mmol/L (97-110); CHOL/HDL RATIO 3.5 RATIO; CREATININE 0.69 mg/dl (0.61-1.24); GLUCOSE 215 mg/dl (70-220); HDL CHOLESTEROL 22 mg/dl (31-75); LDL CHOLESTEROL,CALCULATED 32 mg/dl; MAGNESIUM 2.3 mg/dl (1.7-2.5); PHOSPHORUS 3.7 mg/dl (2.5-4.9); POTASSIUM 4.6 mmol/L (3.5-5.1); SODIUM 136 mmol/L (135-144); TRIGLYCERIDES 125 mg/dl (0-149)
[2018-06-06 09:28] LABS: CHOLESTEROL 79 mg/dl (100-200)
[2018-06-06] MEDS: INSULIN ASPART [NOVOLOG] 3 ML PEN SC ×3 (09:28→17:37)
[2018-06-06 09:32] LABS: HEMOGLOBIN A1C 7.1 % (0-5.9)
[2018-06-06 10:12] LABS: ANISOCYTOSIS 1+ (0-0); BAND NEUTROPHILS #M 1.4 10^3/ul (0.0-0.6); BAND NEUTROPHILS % (M) 15 % (0-4); LYMPHOCYTES #M 0.6 10^3/ul (0.8-2.9); LYMPHOCYTES % (M) 7 % (15-51); METAMYELOCYTES #M 0.3 10^3/ul (0.0-0.0); METAMYELOCYTES %M 4 % (0-0); MICROCYTOSIS 1+ (0-0); MONOCYTE #M 0.8 10^3/ul (0.3-0.9); MONOCYTES % (M) 9 % (0-11); MYELOCYTES #M 0.6 10^3/ul (0.0-0.0); MYELOCYTES % (M) 7 % (0-0); PLATELET ESTIMATE DECREASED; POIKILOCYTOSIS 1+ (0-0); POLYCHROMASIA 3+ (0-0); REACTIVE LYMPHOCYTES% (M) 1 % (0-0); SEG NEUT #M 5.5 10^3/ul (1.6-7.5); SEGMENTED NEUTROPHILS (M) % 57 % (39-77); SMUDGE%M 2 % (0-0)
== END 2018-06-06 19:45 | DRG 55 ==
LOC: E/R 18:28 → PP2 19:29
PROVIDERS: Internal Medicine; Pediatrics Neonatal-Perinatal Medicine
PROC: 30233N1 Transfusion of Nonautologous Red Blood Cells into Peripheral Vein, Percutaneous Approach (ICD-10-PCS; principal; 2018-06-05)
DX: C71.9 Malignant neoplasm of brain, unspecified (principal); D63.0 Anemia in neoplastic disease; F03.90 Unspecified dementia, unspecified severity, without behavioral disturbance, psychotic disturbance, mood disturbance, and anxiety; I48.91 Unspecified atrial fibrillation; I25.10 Atherosclerotic heart disease of native coronary artery without angina pectoris; J44.9 Chronic obstructive pulmonary disease, unspecified; E11.22 Type 2 diabetes mellitus with diabetic chronic kidney disease; I12.9 Hypertensive chronic kidney disease with stage 1 through stage 4 chronic kidney disease, or unspecified chronic kidney disease; N18.9 Chronic kidney disease, unspecified; Z87.891 Personal history of nicotine dependence; Z86.73 Personal history of transient ischemic attack (TIA), and cerebral infarction without residual deficits; Z79.4 Long term (current) use of insulin; Z79.82 Long term (current) use of aspirin; Z89.421 Acquired absence of other right toe(s)
CPT/HCPCS: 36415; 36430; 80048; 80053; 80061; 82962; 83036; 83735; 84100; 84439; 84443; 84484; 85025; 85610; 85730; 86850; 86900; 86901; 86920; 87081; 93005; 96374; 96375; 99291-25